=== PATIENT | male | born 1950 | race American Indian/Alaskan Native ===

== ENCOUNTER → 2019-07-22 | Outpatient (CLI) | payer MEDICARE | END | disposition home or self-care (01) | LOC: SLR 11:00 | PROVIDERS: ATTEND Internal Medicine | DX: G47.33 Obstructive sleep apnea (adult) (pediatric) (principal); R40.0 Somnolence; R06.83 Snoring; E78.00 Pure hypercholesterolemia, unspecified | CPT/HCPCS: G0399 ==

== ENCOUNTER 2020-09-03 20:17 | Observation (INO) | payer MEDICARE ==
--- NOTE | 2020-09-03 20:57 | Emergency Department Report ---
ED GI Bleed HPI - General Chief complaint: GI Bleed Stated complaint: RECTAL BLEEDING Time Seen by Provider: 09/03/20 20:44 Source: EMS Mode of arrival: Wheelchair Limitations: Physical Limitation - History of Present Illness Initial comments: Patient is a 70-year-old male that presents emergency room with complaints of bright red blood per rectum. Patient states it started approximately a week and a half ago. Patient is currently alert and oriented x2. Patient is oriented to person and place. Patient is disoriented to time. Patient answers most questions appropriately. Patient denies abdominal pain. Patient denies melena. Denies fever and chills. Patient denies chest pain or shortness of breath. Patient denies recent travel. Patient denies recent international travel. Patient denies exposure to the novel coronavirus. Patient denies sick contacts. Patient denies fever and chills. Patient denies cough. Patient denies loss of smell.. Patient denies coming in contact with anybody with symptoms of the novel coronavirus. Patient has fdc paperwork that accompanied him. Patient's paperwork has been reviewed. Per the patient's paperwork the patient was complaining of stomach discomfort. Patient has a past medical history of depression, seizure disorder, vitamin D deficiency, anxiety disorder, migraines, dry eye syndrome, BPH, insomnia, hyperlipidemia, hypertension, agitation, hypokalemia, REM sleep disorder, dementia, glaucoma, past infection of COVID-19, CVA, type 2 diabetes, dementia with behavioral disturbances. Patient is a full code. Patient came from [facility];. complaint: gross hematochezia -: Sudden Severity scale (0 -10): 0 Quality: painless Improves with: none Worsens with: none Associated Symptoms: denies other symptoms - Related Data Home Medications Medication Instructions Recorded Confirmed Last Taken Aspirin EC [Ecotrin] 325 mg PO DAILY 09/17/14 10/23/14 09/17/14 Insulin NPH Hum/Reg Insulin Hm 18 units SQ BID 09/17/14 10/23/14 09/17/14 [HumuLIN 70-30 Vial] Rosuvastatin (Nf) [Crestor] 20 mg PO QHS 09/17/14 10/23/14 09/16/14 amLODIPine 10 mg PO DAILY 09/17/14 10/23/14 09/17/14 hydroCHLOROthiazide [HCTZ] 25 mg PO QDAY 09/17/14 10/23/14 09/17/14 lisinopriL [Zestril TAB] 40 mg PO QDAY 09/17/14 10/23/14 09/17/14 Previous Rx's Medication Instructions Recorded Last Taken Type levETIRAcetam [Keppra] 500 mg PO BID #60 tablet 10/23/14 Unknown Rx Allergies Allergy/AdvReac Type Severity Reaction Status Date / Time No Known Allergies Allergy Verified 09/03/20 20:43 ED Review of Systems ROS: Stated complaint: RECTAL BLEEDING Other details as noted in HPI Constitutional: denies: chills, fever Eyes: denies: eye pain, eye discharge, vision change ENT: denies: ear pain, throat pain Respiratory: denies: cough, shortness of breath, wheezing Cardiovascular: denies: chest pain, palpitations Endocrine: no symptoms reported Gastrointestinal: hematochezia. denies: abdominal pain, nausea, diarrhea Genitourinary: denies: urgency, dysuria Musculoskeletal: denies: back pain, joint swelling, arthralgia Skin: denies: rash, lesions Neurological: denies: headache, weakness, paresthesias Psychiatric: denies: anxiety, depression Hematological/Lymphatic: denies: easy bleeding, easy bruising ED Past Medical Hx - Past Medical History Previous Medical History?: Yes Hx Hypertension: Yes Hx CVA: Yes Hx Diabetes: Yes Hx Psychiatric Treatment: Yes (Depression, Anxiety, Dementia) Additional medical history: TIA, Convulsions, BPH, REM sleep disorder, Glaucoma, - Surgical History Past Surgical History?: No - Family History Family history: no significant - Social History Smoking Status: Never Smoker Substance Use Type: None - Medications Home Medications: Home Medications Medication Instructions Recorded Confirmed Last Taken Type Aspirin EC [Ecotrin] 325 mg PO DAILY 09/17/14 10/23/14 09/17/14 History Insulin NPH Hum/Reg Insulin Hm 18 units SQ BID 09/17/14 10/23/14 09/17/14 History [HumuLIN 70-30 Vial] Rosuvastatin (Nf) [Crestor] 20 mg PO QHS 09/17/14 10/23/14 09/16/14 History amLODIPine 10 mg PO DAILY 09/17/14 10/23/14 09/17/14 History hydroCHLOROthiazide [HCTZ] 25 mg PO QDAY 09/17/14 10/23/14 09/17/14 History lisinopriL [Zestril TAB] 40 mg PO QDAY 09/17/14 10/23/14 09/17/14 History levETIRAcetam [Keppra] 500 mg PO BID #60 tablet 10/23/14 Unknown Rx ED Physical Exam - General Limitations: Altered Mental Status, Physical Limitation General appearance: alert, in no apparent distress - Head Head exam: Present: atraumatic, normocephalic - Eye Eye exam: Present: normal appearance - ENT ENT exam: Present: mucous membranes moist - Neck Neck exam: Present: normal inspection - Respiratory Respiratory exam: Present: normal lung sounds bilaterally. Absent: respiratory distress - Cardiovascular Cardiovascular Exam: Present: regular rate, normal rhythm. Absent: systolic murmur, diastolic murmur, rubs, gallop - GI/Abdominal GI/Abdominal exam: Present: soft, normal bowel sounds - Rectal Rectal exam: Present: heme (+) stool, bloody stool, other (Large amount blood noted inside the patient's diaper.). Absent: tenderness - Extremities Exam Extremities exam: Present: normal inspection - Back Exam Back exam: Present: normal inspection - Neurological Exam Neurological exam: Present: alert, altered - Psychiatric Psychiatric exam: Present: normal affect, normal mood - Skin Skin exam: Present: warm, dry, intact, normal color. Absent: rash ED Course Vital Signs 09/03/20 09/03/20 09/03/20 20:33 20:45 21:01 Pulse Rate 116 H 98 H 84 Respiratory 21 17 Rate Blood Pressure 154/79 154/76 O2 Sat by Pulse 99 100 Oximetry 09/03/20 09/03/20 09/03/20 21:15 21:31 21:45 Pulse Rate 79 72 83 Respiratory 13 16 22 Rate Blood Pressure 151/72 137/71 131/80 O2 Sat by Pulse 98 99 99 Oximetry 09/03/20 09/03/20 09/03/20 22:01 22:15 22:31 Pulse Rate 71 69 73 Respiratory 11 L 19 18 Rate Blood Pressure 125/71 119/71 114/78 O2 Sat by Pulse 99 100 Oximetry 09/03/20 09/03/20 09/03/20 22:45 23:01 23:15 Pulse Rate 68 70 72 Respiratory 32 H 13 13 Rate Blood Pressure 114/78 132/78 140/81 O2 Sat by Pulse 99 98 Oximetry 09/03/20 09/03/20 09/03/20 23:30 23:45 23:53 Pulse Rate 74 74 74 Respiratory 18 16 14 Rate Blood Pressure 136/71 129/74 129/74 O2 Sat by Pulse 98 98 99 Oximetry 09/04/20 01:31 Pulse Rate 79 Respiratory 19 Rate Blood Pressure 137/83 O2 Sat by Pulse 98 Oximetry - Reevaluation(s) Reevaluation #1: I discussed all results with patient. I discussed plan of care with patient. Patient agrees with plan of care and admission. Patient to be admitted to the hospitalist service. 09/03/20 23:11 - Consultations Consultation #1: GI paged 09/03/20 23:05 I discussed case with AMADOR Coker. Dr. Branham agrees with admission and states he will see the patient in the morning. 09/03/2023:25 Consultation #2: Hospitalist consulted for admission. Hospitalist to admit patient. 09/03/20 23:13 ED Medical Decision Making - Lab Data Result diagrams: 09/03/20 20:50 09/03/20 20:50 - Medical Decision Making Patient is a 70-year-old male who presents emergency room with complaints of bright red blood per rectum. Patient states is been going on for 1-1/2 weeks. Patient states there is a large amount of blood. During initial examination, a guaiac was done it was positive. Copious amounts of blood noted inside of the patient's diaper. No hemorrhoid was noted on initial exam. Patient's labs were essentially unremarkable except for hyperglycemia. Patient admitted to the hospital service for further evaluation and treatment. GI consulted. - Differential Diagnosis Anemia, GI bleed, bright red blood per rectum. Critical Care Time: Yes Critical care time in (mins) excluding proc time.: 35 Critical care attestation.: If time is entered above; I have spent that time in minutes in the direct care of this critically ill patient, excluding procedure time. Critical Care Time: 35 minutes ED Disposition Clinical Impression: Bright red blood per rectum, Hyperglycemia GI bleed Qualifiers: GI bleed type/associated pathology: unspecified gastrointestinal hemorrhage type Qualified Code(s): K92.2 - Gastrointestinal hemorrhage, unspecified Altered mental status Qualifiers: Altered mental status type: unspecified Qualified Code(s): R41.82 - Altered mental status, unspecified Disposition: DC-09 OP ADMIT IP TO THIS HOSP Is pt being admited?: Yes Does the pt Need Aspirin: No Condition: Critical Time of Disposition: 23:13
[2020-09-03 21:30] LABS: Basophils % (Auto) 0.6 % (0.0-1.8); Eosinophils % (Auto) 0.5 % (0.0-4.3); Hematocrit 40.4 % (35.5-45.6); Hemoglobin 13.4 gm/dl (11.8-15.2); Lymphocytes # (Auto) 1.6 K/mm3 (1.2-5.4); Lymphocytes % (Auto) 21.8 % (13.4-35.0); Mean Corpuscular HGB Conc 33 % (32-34); Mean Corpuscular Volume 90 fl (84-94); Monocytes # (Auto) 0.7 K/mm3 (0.0-0.8); Monocytes % (Auto) 9.3 % (0.0-7.3); Platelet Count 175 K/mm3 (140-440); Red Blood Count 4.48 M/mm3 (3.65-5.03); Red Cell Distribution Width 13.6 % (13.2-15.2)
[2020-09-03 21:41] LABS: INR 1.22 (0.87-1.13)
[2020-09-03 21:42] LABS: Partial Thromboplastin Time 29.5 Sec. (24.2-36.6)
[2020-09-03 22:01] LABS: BUN/Creatinine Ratio 12; Blood Urea Nitrogen 11 mg/dL (9-20); Calcium 9.2 mg/dL (8.4-10.2); Hemolysis Index 43
[2020-09-04] MEDS ORDERED: ONDANSETRON 4 MG/2 ML INJ IV PRN (00:26)
[2020-09-04] MEDS ORDERED: ACETAMINOPHEN 325 MG TAB PO PRN (00:26)
[2020-09-04] MEDS ORDERED: MORPHINE 2 MG/1 ML INJ IV PRN (00:26)
[2020-09-04] MEDS ORDERED: SODIUM CHLORIDE 0.9% 1000 ML 1,000 ML IV SCH (00:30)
--- NOTE | 2020-09-04 00:36 | History and Physical Report ---
History of Present Illness Date of examination: 09/03/20 Date of admission: 09/03/20 23:30 Chief complaint: Bright red blood per rectum History of present illness: Patient is a 70-year-old male resident of a long term with known history of dementia, hypertension, diabetes mellitus, history of CVA and glaucoma presented to the emergency room today with complaint of bright red blood per rectum which has been ongoing for about a week and a half. He denies any abdominal pain, no fever or chills, no chest pain or shortness of breath, no nausea vomiting and no diarrhea. He however has complained of some abdominal discomfort especially in the epigastric region . Work-up in the emergency room today reveals an hemoglobin of 13.4 Patient is being admitted for GI bleed. Past History Past Medical History: diabetes, hypertension, hyperlipidemia, stroke, other (Dementia,Anxiety,TIA,BPH,Glaucoma) Past Surgical History: No surgical history Social history: other (Resides in a Longterm- [facility]) Family history: no significant family history Medications and Allergies Allergies Allergy/AdvReac Type Severity Reaction Status Date / Time No Known Allergies Allergy Verified 09/03/20 20:43 Home Medications Medication Instructions Recorded Confirmed Last Taken Type Aspirin EC [Ecotrin] 325 mg PO DAILY 09/17/14 10/23/14 09/17/14 History Insulin NPH Hum/Reg Insulin Hm 18 units SQ BID 09/17/14 10/23/14 09/17/14 History [HumuLIN 70-30 Vial] Rosuvastatin (Nf) [Crestor] 20 mg PO QHS 09/17/14 10/23/14 09/16/14 History amLODIPine 10 mg PO DAILY 09/17/14 10/23/14 09/17/14 History hydroCHLOROthiazide [HCTZ] 25 mg PO QDAY 09/17/14 10/23/14 09/17/14 History lisinopriL [Zestril TAB] 40 mg PO QDAY 09/17/14 10/23/14 09/17/14 History levETIRAcetam [Keppra] 500 mg PO BID #60 tablet 10/23/14 Unknown Rx Active Meds: Active Medications Acetaminophen (Tylenol) 650 mg PO Q4H PRN PRN Reason: Pain MILD(1-3)/Fever >100.5/PONCE Sodium Chloride (Nacl 0.9% 1000 Ml) 1,000 mls @ 125 mls/hr IV DIRECT ANTON Morphine Sulfate (Morphine) 2 mg IV Q4H PRN PRN Reason: Pain, Moderate (4-6) Ondansetron HCl (Zofran) 4 mg IV Q8H PRN PRN Reason: Nausea And Vomiting Sodium Chloride (Sodium Chloride Flush Syringe 10 Ml) 10 ml IV BID ANTON Sodium Chloride (Sodium Chloride Flush Syringe 10 Ml) 10 ml IV PRN PRN PRN Reason: LINE FLUSH Review of Systems Constitutional: no fever, no chills Ears, nose, mouth and throat: no nasal congestion, no sore throat Cardiovascular: no chest pain, no palpitations Respiratory: no cough, no shortness of breath Gastrointestinal: abdominal pain, BRBPR, no nausea, no vomiting, no diarrhea, no coffee ground emesis Genitourinary Male: no dysuria, no hematuria, no flank pain Musculoskeletal: no neck pain, no low back pain Integumentary: no rash, no pruritis Neurological: no headaches, no confusion Psychiatric: no anxiety, no depression Exam - Constitutional Vitals: Temp Pulse Resp BP Pulse Ox 74 16 129/74 98 09/03/20 23:45 09/03/20 23:45 09/03/20 23:45 09/03/20 23:45 General appearance: Present: no acute distress, well-nourished - EENT Eyes: Present: PERRL, EOM intact. Absent: scleral icterus ENT: hearing intact, clear oral mucosa, dentition normal - Neck Neck: Present: supple, normal ROM - Respiratory Respiratory effort: normal Respiratory: bilateral: CTA - Cardiovascular Rhythm: regular Heart Sounds: Present: S1 & S2. Absent: gallop, systolic murmur, diastolic murmur, rub - Extremities Extremities: no ischemia, pulses intact, pulses symmetrical, No edema, Full ROM Peripheral Pulses: within normal limits - Abdominal General gastrointestinal: Present: soft, non-tender, non-distended, normal bowel sounds. Absent: mass - Integumentary Integumentary: Present: clear, warm, dry. Absent: rash - Musculoskeletal Musculoskeletal: strength equal bilaterally - Psychiatric Psychiatric: appropriate mood/affect, intact judgment & insight, cooperative, other (AOX2) - Neurologic Neurologic: CNII-XII intact, no focal deficits, moves all extremities Results - Labs CBC & Chem 7: 09/03/20 20:50 09/03/20 20:50 Labs: Abnormal lab results 09/03/20 09/03/20 09/03/20 Range/Units 20:50 20:50 21:13 Park % (Auto) 9.3 H (0.0-7.3) % PT 15.6 H (12.2-14.9) Sec. INR 1.22 H (0.87-1.13) Glucose 155 H (75-100) mg/dL Assessment and Plan - Patient Problems (1) GI bleed Current Visit: Yes Status: Acute Qualifiers: GI bleed type/associated pathology: unspecified gastrointestinal hemorrhage type Qualified Code(s): K92.2 - Gastrointestinal hemorrhage, unspecified Plan to address problem: Etiology is unknown. We will monitor CBC. [employer] has been consulted for evaluation. (2) Diabetes mellitus, type 2 Current Visit: No Status: Chronic Plan to address problem: We will monitor Accu-Cheks. (3) HTN (hypertension) Current Visit: No Status: Chronic Plan to address problem: We will monitor vital signs closely. (4) Hyperlipidemia Current Visit: No Status: Chronic Plan to address problem: We will continue routine home medications and monitor lipid profile. (5) DVT prophylaxis Current Visit: No Status: Acute Plan to address problem: Patient placed on sequential compression device. (6) Full code status Current Visit: Yes Status: Acute
--- NOTE | 2020-09-04 08:04 | Event Note ---
Date: 09/04/20 Patient is a 70-year-old male that presents emergency room with complaints of bright red blood per rectum. Patient states it started approximately a week and a half ago. Patient is currently alert and oriented x2. Patient is oriented to person and place. Patient is disoriented to time. Patient answers most questions appropriately. Patient denies abdominal pain. Patient denies melena. Denies fever and chills. Patient denies chest pain or shortness of breath. Patient denies recent travel. Patient denies recent international travel. Patient denies exposure to the novel coronavirus. Patient denies sick contacts. Patient denies fever and chills. Patient denies cough. Patient denies loss of smell.. Patient denies coming in contact with anybody with symptoms of the novel coronavirus. Patient has long term paperwork that accompanied him. Patient's paperwork has been reviewed. Per the patient's paperwork the patient was complaining of stomach discomfort. Patient has a past medical history of depression, seizure disorder, vitamin D deficiency, anxiety disorder, migraines, dry eye syndrome, BPH, insomnia, hyperlipidemia, hypertension, agitation, hypokalemia, REM sleep disorder, dementia, glaucoma, past infection of COVID-19, CVA, type 2 diabetes, dementia with behavioral disturbances. Patient is a full code. Patient came from [facility];. Patient is scheduled to have colonoscopy in a.m.
--- NOTE | 2020-09-04 09:06 | Gastroenterology Consultation ---
History of Present Illness - Reason for Consult Consult date: 09/04/20 Rectal Bleeding - History of Present Illness History obtained from patient and chart. I also tried calling the patient's n iece and next of kin (Per detention records), Jocelyn Foreman, at [phone], however no one picked up the phone This is a pleasant 70-year-old gentleman that presented for chief complaint of bright red blood per rectum duration approximately 1 week patient denies abdominal pain nausea or vomiting. Patient denies any prior history of GI bleeding. Patient thinks he has not had a colonoscopy ever in his life. Denies changes in stool or dietary habits Per the patient's paperwork the patient was complaining of stomach discomfort. Patient has a past medical history of depression, seizure disorder, vitamin D deficiency, anxiety disorder, migraines, dry eye syndrome, BPH, insomnia, hyper lipidemia, hypertension, agitation, hypokalemia, REM sleep disorder, dementia, glaucoma, past infection of COVID-19, CVA, type 2 diabetes, dementia with behavioral disturbances. Patient is a full code. Patient came from [facility] Obtained/updated/reviewed patient's current medications Past History Past Medical History: diabetes, hypertension, hyperlipidemia, stroke, other (Dementia,Anxiety,TIA,BPH,Glaucoma) Past Surgical History: No surgical history Social history: other (Resides in a [facility]- [facility]) Family history: no significant family history Medications and Allergies Allergies Allergy/AdvReac Type Severity Reaction Status Date / Time No Known Allergies Allergy Verified 09/03/20 20:43 Home Medications Medication Instructions Recorded Confirmed Last Taken Type Aspirin EC [Ecotrin] 325 mg PO DAILY 09/17/14 10/23/14 09/17/14 History Insulin NPH Hum/Reg Insulin Hm 18 units SQ BID 09/17/14 10/23/14 09/17/14 History [HumuLIN 70-30 Vial] Rosuvastatin (Nf) [Crestor] 20 mg PO QHS 09/17/14 10/23/14 09/16/14 History amLODIPine 10 mg PO DAILY 09/17/14 10/23/14 09/17/14 History hydroCHLOROthiazide [HCTZ] 25 mg PO QDAY 09/17/14 10/23/14 09/17/14 History lisinopriL [Zestril TAB] 40 mg PO QDAY 09/17/14 10/23/14 09/17/14 History levETIRAcetam [Keppra] 500 mg PO BID #60 tablet 10/23/14 Unknown Rx Active Meds: Active Medications Acetaminophen (Tylenol) 650 mg PO Q4H PRN PRN Reason: Pain MILD(1-3)/Fever >100.5/PONCE Sodium Chloride (Nacl 0.9% 1000 Ml) 1,000 mls @ 125 mls/hr IV DIRECT ANTON Morphine Sulfate (Morphine) 2 mg IV Q4H PRN PRN Reason: Pain, Moderate (4-6) Ondansetron HCl (Zofran) 4 mg IV Q8H PRN PRN Reason: Nausea And Vomiting Sodium Chloride (Sodium Chloride Flush Syringe 10 Ml) 10 ml IV BID ANTON Sodium Chloride (Sodium Chloride Flush Syringe 10 Ml) 10 ml IV PRN PRN PRN Reason: LINE FLUSH Review of Systems - Review of Systems ROS unobtainable: due to mental status Exam - Constitutional Vital Signs: Temp Pulse Resp BP Pulse Ox 97.9 F 72 18 138/73 97 09/04/20 03:09 09/04/20 03:09 09/04/20 03:09 09/04/20 03:09 09/04/20 03:09 General appearance: no acute distress - EENT Eyes: EOM intact - Neck Neck: supple - Respiratory Respiratory effort: normal - Cardiovascular Rhythm: regular - Gastrointestinal General gastrointestinal: Present: soft, non-tender - Integumentary Integumentary: Present: dry - Neurologic Neurological: oriented to person - Psychiatric Psychiatric: appropriate mood/affect - Labs CBC & Chem 7: 09/03/20 20:50 09/03/20 20:50 Lab Results: Laboratory Results - last 24 hr 09/03/20 09/03/20 09/03/20 20:50 20:50 21:13 WBC 7.3 RBC 4.48 Hgb 13.4 Hct 40.4 MCV 90 MCH 30 MCHC 33 RDW 13.6 Plt Count 175 Lymph % (Auto) 21.8 Harrison % (Auto) 9.3 H Eos % (Auto) 0.5 Baso % (Auto) 0.6 Lymph # (Auto) 1.6 Harrison # (Auto) 0.7 Eos # (Auto) 0.0 Baso # (Auto) 0.0 Seg Neutrophils % 67.8 Seg Neutrophils # 5.0 PT 15.6 H INR 1.22 H APTT 29.5 Sodium 143 Potassium 3.8 Chloride 103.2 Carbon Dioxide 25 Anion Gap 19 BUN 11 Creatinine 0.9 Estimated GFR > 60 BUN/Creatinine Ratio 12 Glucose 155 H Calcium 9.2 Assessment and Plan Given patient stable hemoglobin last in the differential diagnosis is rectal outlet bleeding such as due to hemorrhoid, fissure, etc. However, given amount of blood that was reported as well as patient living in a nursing facility and therefore likelihood of is being sent back to the emergency room for more bleeding and issues with outpatient follow-up would recommend diagnostic colonoscopy to rule out underlying lesion such as polyp mass AVM etc. Therefore, I will continue to try to contact the patient's family to obtain consent for colonoscopy which can be considered for tomorrow. In the meantime we will put patient on clear liquid diet - Patient Problems (1) Bright red blood per rectum Current Visit: Yes Status: Acute (2) GI bleed Current Visit: Yes Status: Acute Qualifiers: GI bleed type/associated pathology: unspecified gastrointestinal hemorrhage type Qualified Code(s): K92.2 - Gastrointestinal hemorrhage, unspecified
--- NOTE | 2020-09-04 16:07 | Event Note ---
Date: 09/04/20 successfully contacted UMBERTO Patton at [phone] and got verbal consent to proceed with colon tomorrow
[2020-09-04] MEDS ORDERED: POLYETHYLENE GLYCOL/ELECT SOLN 4000 ML PO SCH (16:54)
[2020-09-05] MEDS ORDERED: WATER FOR IRRIG STERILE 1,000 ML BOTTLE ONE (08:46)
[2020-09-05] MEDS ORDERED: SODIUM CHLORIDE 0.9% 1000 ML 1,000 ML ONE (08:46)
[2020-09-05] MEDS ORDERED: WATER FOR IRRIG STERILE 250 ML BOTTLE IR ONE (08:46)
[2020-09-05] MEDS ORDERED: SODIUM CHLORIDE 0.9% 1000 ML 1,000 ML IV SCH (09:00)
--- NOTE | 2020-09-05 09:13 | Anesthesia Consultation ---
Anesthesia Consult and Med Hx Date of service: 09/05/20 - Airway Anesthetic Teeth Evaluation: Poor ROM Head & Neck: Adequate Mental/Hyoid Distance: Adequate Mallampati Class: Class II Intubation Access Assessment: Probably Good - Pulmonary Exam CTA: Yes - Pre-Operative Health Status ASA Pre-Surgery Classification: ASA3, Emergency Proposed Anesthetic Plan: MAC - Pulmonary Hx Smoking: No Hx Asthma: No COPD: No Home Oxygen Therapy: No Hx Pneumonia: Yes (As a child) Hx Sleep Apnea: No - Cardiovascular System Hx Hypertension: Yes Hx Angina: Yes (chest pain) Hx Cardia Arrhythmia: Yes (Bradycardia) Hx Pacemaker: No Hx Internal Defibrillator: No - Central Nervous System Hx Neuromuscular Disorder: Yes (Syncopy) CVA: Yes Hx Psychiatric Problems: Yes (Altered mental status, Dementia) - Gastrointestinal Hx Ulcer: Yes ( GI Bleeding) - Endocrine Hx Renal Disease: No Hx Cirrhosis: No Hx Liver Disease: No Hx Non-Insulin Dependent Diabetes: Yes Hx Thyroid Disease: No - Hematic Hx Anemia: No - Other Systems Hx Alcohol Use: Yes (beers socially. None in 2 months) Hx Cancer: No Hx Obesity: No - Additional Comments Anesthesia Medical History Comments: Denied previous anesthesia complication
--- NOTE | 2020-09-05 09:15 | Anesthesia Day of Surgery ---
Anesthesia Day of Surgery - Day of Surgery Patient Examined: Yes Patient H&P Reviewed: Yes Patient is NPO: Yes Beta Blockers: No Cardiac Clearance: No Pulmonary Clearance: No
[2020-09-05] MEDS ORDERED: LIDOCAINE MPF (2%) 20 MG/1 ML VIAL 5 ML ONE (09:17)
[2020-09-05] MEDS ORDERED: propofoL 200 MG/20 ML VIAL IV ONE ×2 (09:18→09:25)
--- NOTE | 2020-09-05 10:01 | Post Operative Note ---
Pre-op diagnosis: gi bleed Post-op diagnosis: same Findings: Colon: few medium sigmoid divertiuclosis - medium/large internal hemorrhoids without bleeding stigmata - negative other Procedure: Colonoscopy Anesthesia: MAC Surgeon: MISA DYER Estimated blood loss: none Pathology: list Specimen disposition: to lab Condition: stable Disposition: floor
--- NOTE | 2020-09-05 10:27 | Operative Report ---
COLONOSCOPY PROCEDURE NOTE INDICATION: Rectal bleeding. MEDICATIONS: Propofol per LONG DISTANCE OPERATOR. COMPLICATIONS: None. DESCRIPTION OF PROCEDURE: The patient was brought to procedure suite. The patient had the procedure discussed with him at length. All risks, complications and benefits discussed after which the patient signed for the procedure to be performed. The patient was placed in left lateral decubitus position. Rectal exam performed prior to insertion of the scope. After adequate sedation medication as above, scope was introduced into the rectum and brought to level of cecum. Ileocecal valve, appendiceal orifice, cecal strap were adequately visualized. Colonoscope was then removed and mucosa of colon visualized. Prep quality for the procedure was fair. The patient's vital signs remained stable throughout the procedure. FINDINGS: There were no mass lesions or polyps noted during this procedure. There were few small to medium sigmoid diverticula noted with no stigmata of bleeding. Retroflexion view performed in the rectum showed medium to large internal hemorrhoids. This may have been a source of bleeding. The patient tolerated the procedure well. No complications during the procedure. IMPRESSION: 1. Diverticulosis. 2. Internal hemorrhoids as noted above. 3. Otherwise, normal colonoscopy with no stigmata of bleeding noted during the procedure. RECOMMENDATIONS: 1. High-fiber diet. 2. Continue current medications. 3. If H and H stable, okay to discharge from GI standpoint later today. JOB# [id number] CAB/NTS
--- NOTE | 2020-09-05 11:26 | Post Anesthesia Evaluation ---
- Post Anesthesia Evaluation Patient Participated: Yes Airway Patent: Yes Stable Respiratory Function: Yes Nausea/Vomiting: No Temp > 96.8F: Yes Pain Manageable: Yes Adequeate Hydration: Yes Anesthesia Complications: No Block Receding Appropriately: Not Applicable Patient on Ventilator: No
--- NOTE | 2020-09-05 13:51 | Discharge Summary ---
Providers - Providers Date of Admission: 09/03/20 23:30 Date of discharge: 09/05/20 Attending physician: VERONICA LOVE 09/04/20 00:28 Consult to Physician [CONS] Routine Comment: Consulting Provider: KATIE MOTT Physician Instructions: Reason For Exam: GI bleed Primary care physician: CONSTRUCTION [employer] Hospitalization Condition: Good Pertinent studies: Colonoscopy which showed large internal hemorrhoids. Hospital course: Patient admitted for lower GI bleed. Noticed blood in the stool. Work-up here found patient not to be anemic. Patient had no rectal pain no abdominal pain was hemodynamically stable. Had colonoscopy which show etiology of bleeding to be large internal hemorrhoids. Patient be treated for these sitz bath suppositories at [facility]. Disposition: DC/[place]-03 [facility]F [facility] - Discharge Diagnoses (1) GI bleed Status: Acute Qualifiers: GI bleed type/associated pathology: unspecified gastrointestinal hemorrhage type Qualified Code(s): K92.2 - Gastrointestinal hemorrhage, unspecified Comment: Patient acute GI blood loss anemia secondary to internal hemorrhoids. H&H has remained stable patient has never been anemic. Can follow-up CBC. Treat hemorrhoids in the [facility] setting. Core Measure Documentation - Palliative Care Palliative Care/ Comfort Measures: Not Applicable - Core Measures Any of the following diagnoses?: none Exam - Constitutional Vitals: Temp Pulse Resp BP Pulse Ox 97.6 F 63 20 156/74 97 09/05/20 06:25 09/05/20 06:25 09/05/20 06:25 09/05/20 06:25 09/05/20 06:25 General appearance: Present: no acute distress, well-nourished - EENT Eyes: Present: PERRL ENT: hearing intact, clear oral mucosa - Neck Neck: Present: supple, normal ROM - Respiratory Respiratory effort: normal Respiratory: bilateral: CTA - Cardiovascular Heart Sounds: Present: S1 & S2. Absent: rub, click - Extremities Extremities: pulses symmetrical, No edema Peripheral Pulses: within normal limits - Abdominal General gastrointestinal: Present: soft, non-tender, non-distended, normal bowel sounds Male genitourinary: Present: normal - Integumentary Integumentary: Present: clear, warm, dry - Musculoskeletal Musculoskeletal: gait normal, strength equal bilaterally - Psychiatric Psychiatric: appropriate mood/affect, intact judgment & insight - Neurologic Neurologic: CNII-XII intact, moves all extremities Plan Activity: no restrictions Diet: low fat, other (High-fiber diet will relate this message to [facility] facility.) Follow up with: PRIMARY CARE, [Primary Care Provider] - 3-5 Days Prescriptions: Hydrocortisone [Proctosol-Hc 2.5% TOP CREAM] 10 applic RC BID #14 cream.appl
[2020-09-05 17:46] LABS: Basophils % (Auto) 0.4 % (0.0-1.8); Eosinophils % (Auto) 0.6 % (0.0-4.3); Hematocrit 41.7 % (35.5-45.6); Hemoglobin 13.8 gm/dl (11.8-15.2); Lymphocytes # (Auto) 1.7 K/mm3 (1.2-5.4); Lymphocytes % (Auto) 22.6 % (13.4-35.0); Mean Corpuscular HGB Conc 33 % (32-34); Mean Corpuscular Volume 89 fl (84-94); Monocytes # (Auto) 0.9 K/mm3 (0.0-0.8); Monocytes % (Auto) 12.2 % (0.0-7.3); Platelet Count 165 K/mm3 (140-440); Red Blood Count 4.67 M/mm3 (3.65-5.03); Red Cell Distribution Width 13.4 % (13.2-15.2)
[2020-09-05 17:59] LABS: Blood Urea Nitrogen 7 mg/dL (9-20); Calcium 9.1 mg/dL (8.4-10.2); Hemolysis Index 64
[2020-09-05 18:01] LABS: BUN/Creatinine Ratio 10
[2020-09-05 18:04] LABS: INR 1.21 (0.87-1.13)
--- NOTE | 2020-09-06 13:03 | Gastroenterology Progress Note ---
Assessment and Plan 1.GI: rectal bleeding most likely due to hemorrhoids, also noted diverticulosis on colonoscopy - no GI issues overnight - h/h stable - ok to dc from GI standpoint Subjective Date of service: 09/06/20 Interval history: - no GI complaints overnight Objective - Constitutional Vitals: Temp Pulse Resp BP Pulse Ox 97.8 F 66 20 153/74 96 09/06/20 11:14 09/06/20 11:14 09/06/20 11:14 09/06/20 11:14 09/06/20 11:14 General appearance: no acute distress - EENT Eyes: PERRL - Respiratory Respiratory: bilateral: CTA - Cardiovascular Rhythm: regular Heart Sounds: Present: S1 & S2 - Gastrointestinal General gastrointestinal: Present: soft, non-tender, non-distended - Labs CBC & Chem 7: 09/05/20 16:57 09/05/20 16:57 Labs: Laboratory Results - last 24 hr 09/05/20 09/05/20 09/05/20 16:57 16:57 16:57 WBC 7.4 RBC 4.67 Hgb 13.8 Hct 41.7 MCV 89 MCH 30 MCHC 33 RDW 13.4 Plt Count 165 Lymph % (Auto) 22.6 [place] % (Auto) 12.2 H Eos % (Auto) 0.6 Baso % (Auto) 0.4 Lymph # (Auto) 1.7 [place] # (Auto) 0.9 H Eos # (Auto) 0.0 Baso # (Auto) 0.0 Seg Neutrophils % 64.2 Seg Neutrophils # 4.8 PT 15.5 H INR 1.21 H Sodium 142 Potassium 3.6 Chloride 105.1 Carbon Dioxide 26 Anion Gap 15 BUN 7 L Creatinine 0.7 L Estimated GFR > 60 BUN/Creatinine Ratio 10 Glucose 107 H POC Glucose Calcium 9.1 09/05/20 09/06/20 09/06/20 21:00 07:55 11:53 WBC RBC Hgb Hct MCV MCH MCHC RDW Plt Count Lymph % (Auto) [place] % (Auto) Eos % (Auto) Baso % (Auto) Lymph # (Auto) [place] # (Auto) Eos # (Auto) Baso # (Auto) Seg Neutrophils % Seg Neutrophils # PT INR Sodium Potassium Chloride Carbon Dioxide Anion Gap BUN Creatinine Estimated GFR BUN/Creatinine Ratio Glucose POC Glucose 72 83 108 H Calcium
--- NOTE | 2020-09-06 14:50 | Event Note ---
Date: 09/06/20 Mr. Foreman did not go home yesterday secondary to no Covid test and patient is going back to [facility]way facility. Test has been obtained negative patient stable to return using same discharge.
--- NOTE | 2020-09-07 12:21 | Gastroenterology Progress Note ---
Assessment and Plan 1. GI: stable overnight w/o signs bleeding - follow h/h - diet as tolerated - ok to d/c, will sign off Subjective Date of service: 09/07/20 Interval history: - no GI issues overnight Objective - Constitutional Vitals: Temp Pulse Resp BP Pulse Ox 97.9 F 66 19 171/87 100 09/07/20 12:12 09/07/20 12:12 09/07/20 12:12 09/07/20 12:12 09/07/20 12:12 General appearance: no acute distress - EENT Eyes: PERRL - Respiratory Respiratory: bilateral: CTA - Cardiovascular Rhythm: regular Heart Sounds: Present: S1 & S2 - Gastrointestinal General gastrointestinal: Present: soft, non-tender, non-distended - Labs CBC & Chem 7: 09/05/20 16:57 09/05/20 16:57 Labs: Laboratory Results - last 24 hr 09/06/20 09/06/20 09/06/20 09:22 16:36 21:24 POC Glucose 119 H 110 H Coronavirus (PCR) Negative 09/07/20 08:46 POC Glucose 82 Coronavirus (PCR)
[2020-09-07] MEDS ORDERED: LISINOPRIL 40 MG TAB PO SCH (13:00)
[2020-09-07] MEDS ORDERED: amLODIPine 10 MG TAB PO SCH (13:00)
--- NOTE | 2020-09-07 14:22 | Discharge Summary ---
Providers - Providers Date of Admission: 09/03/20 23:30 Date of discharge: 09/07/20 Attending physician: VERONICA LOVE 09/04/20 00:28 Consult to Physician [CONS] Routine Comment: Consulting Provider: KATIE MOTT Physician Instructions: Reason For Exam: GI bleed Primary care physician: CLINIC MD ASSOCIATE Hospitalization Condition: Good Hospital course: Patient presented with rectal bleeding. Patient had colonoscopy done which showed large internal hemorrhoids no further bleeding. Patient is transfused hemoglobin hematocrit stabilized times another 2448 hrs. No abdominal pain no further bleeding patient stable for discharge back to alf. Hospital course complicated by necessity of Covid test. Covid found to be negative. Disposition: DC/[facility]-03 SNF [facility] - Discharge Diagnoses (1) GI bleed Status: Acute Qualifiers: GI bleed type/associated pathology: unspecified gastrointestinal hemorrhage type Qualified Code(s): K92.2 - Gastrointestinal hemorrhage, unspecified Comment: Patient acute GI blood loss anemia secondary to internal hemorrhoids. H&H has remained stable patient has never been anemic. Can follow-up CBC. Treat hemorrhoids in the [facility] facility setting. Core Measure Documentation - Palliative Care Palliative Care/ Comfort Measures: Not Applicable - Core Measures Any of the following diagnoses?: none Exam - Constitutional Vitals: Temp Pulse Resp BP Pulse Ox 97.9 F 66 19 171/87 100 09/07/20 12:12 09/07/20 12:21 09/07/20 12:12 09/07/20 12:21 09/07/20 12:12 General appearance: Present: no acute distress, well-nourished - EENT Eyes: Present: PERRL ENT: hearing intact, clear oral mucosa - Neck Neck: Present: supple, normal ROM - Respiratory Respiratory effort: normal Respiratory: bilateral: CTA - Cardiovascular Heart Sounds: Present: S1 & S2. Absent: rub, click - Extremities Extremities: pulses symmetrical, No edema Peripheral Pulses: within normal limits - Abdominal General gastrointestinal: Present: soft, non-tender, non-distended, normal bowel sounds Male genitourinary: Present: normal - Integumentary Integumentary: Present: clear, warm, dry - Musculoskeletal Musculoskeletal: gait normal, strength equal bilaterally - Psychiatric Psychiatric: appropriate mood/affect, intact judgment & insight - Neurologic Neurologic: CNII-XII intact, moves all extremities Plan Activity: no restrictions Diet: other (Stool softeners no straining with bowel movement.) Assessment: Follow-up discharge today 09/07/2020 Follow up with: PRIMARY CARE,MD [Primary Care Provider] - 3-5 Days Prescriptions: Hydrocortisone [Proctosol-Hc 2.5% TOP CREAM] 10 applic RC BID #14 cream.appl
[2020-09-07 19:54] VITALS: BP 138/78
== END 2020-09-07 18:00 ==
LOC: ED 20:17 → 3A 23:30
PROVIDERS: ADMIT Internal Medicine Geriatric Medicine; ATTEND Internal Medicine
DX: K92.2 Gastrointestinal hemorrhage, unspecified (principal); Z20.828 Contact with and (suspected) exposure to other viral communicable diseases; I10 Essential (primary) hypertension; E11.65 Type 2 diabetes mellitus with hyperglycemia; E78.5 Hyperlipidemia, unspecified; F02.80 Dementia in other diseases classified elsewhere, unspecified severity, without behavioral disturbance, psychotic disturbance, mood disturbance, and anxiety; F41.9 Anxiety disorder, unspecified; N40.0 Benign prostatic hyperplasia without lower urinary tract symptoms; H40.9 Unspecified glaucoma; Z86.73 Personal history of transient ischemic attack (TIA), and cerebral infarction without residual deficits; Z79.4 Long term (current) use of insulin; Z79.82 Long term (current) use of aspirin
CPT/HCPCS: 36415; 45378; 80048; 82962; 85025; 85610; 85730; 96361; 96374; 96375; 99291; G0378; J2270; J2704; J7030; U0003

== ENCOUNTER 2021-09-03 18:43 | Emergency (ER) | payer MEDICARE ==
[2021-09-03] MEDS ORDERED: SODIUM CHLORIDE 0.9% 1000 ML 1,000 ML IV ONE (19:46)
--- NOTE | 2021-09-03 19:52 | Emergency Department Report ---
ED General Adult HPI - General Chief complaint: Altered Mental Status Stated complaint: AMS Time Seen by Provider: 09/03/21 19:35 Source: patient Mode of arrival: Stretcher Limitations: Altered Mental Status - History of Present Illness Initial comments: 71-year-old male with a past medical history of type 2 diabetes, dementia, seizures, and GI bleed secondary hemorrhoids presents to the hospital from the [facility] for decreased p.o. intake for the last 3 days. Patient states he has been eating just a little. He is oriented to person, place, but not to year. He denies pain. He does not provide a reason as to why he has decreased p.o. intake but states he eats "a little" as per nursing how she is at patient's baseline he is alert, confused, verbal, ambulates with a walker. Severity scale (0 -10): 0 - Related Data Home Medications Medication Instructions Recorded Confirmed Last Taken Aspirin EC [Ecotrin] 325 mg PO DAILY 09/17/14 10/23/14 09/17/14 Insulin NPH Hum/Reg Insulin Hm 18 units SQ BID 09/17/14 10/23/14 09/17/14 [HumuLIN 70-30 Vial] Rosuvastatin (Nf) [Crestor] 20 mg PO QHS 09/17/14 10/23/14 09/16/14 amLODIPine 10 mg PO DAILY 09/17/14 10/23/14 09/17/14 hydroCHLOROthiazide [HCTZ] 25 mg PO QDAY 09/17/14 10/23/14 09/17/14 lisinopriL [Zestril TAB] 40 mg PO QDAY 09/17/14 10/23/14 09/17/14 Previous Rx's Medication Instructions Recorded Last Taken Type levETIRAcetam [Keppra TAB] 500 mg PO BID #60 tablet 10/23/14 Unknown Rx Acetaminophen [Acetaminophen TAB] 650 mg PO Q4H PRN tablet 09/05/20 Unknown Rx Hydrocortisone [Proctosol-Hc 2.5% 10 applic RC BID #14 cream.appl 09/05/20 Unknown Rx TOP CREAM] Allergies Allergy/AdvReac Type Severity Reaction Status Date / Time No Known Allergies Allergy Verified 09/03/20 20:43 ED Review of Systems ROS: Stated complaint: AMS Other details as noted in HPI Comment: All other systems reviewed and negative ED Past Medical Hx - Past Medical History Hx Hypertension: Yes Hx CVA: Yes Hx Diabetes: Yes Hx Liver Disease: No Hx Renal Disease: No Hx Psychiatric Treatment: Yes (Depression, Anxiety, Dementia) Hx Asthma: No Hx COPD: No Additional medical history: TIA, Convulsions, BPH, REM sleep disorder, Glaucoma, - Surgical History Hx Pacemaker: No Hx Internal Defibrillator: No - Social History Smoking Status: Never Smoker - Medications Home Medications: Home Medications Medication Instructions Recorded Confirmed Last Taken Type Aspirin EC [Ecotrin] 325 mg PO DAILY 09/17/14 10/23/14 09/17/14 History Insulin NPH Hum/Reg Insulin Hm 18 units SQ BID 09/17/14 10/23/14 09/17/14 History [HumuLIN 70-30 Vial] Rosuvastatin (Nf) [Crestor] 20 mg PO QHS 09/17/14 10/23/14 09/16/14 History amLODIPine 10 mg PO DAILY 09/17/14 10/23/14 09/17/14 History hydroCHLOROthiazide [HCTZ] 25 mg PO QDAY 09/17/14 10/23/14 09/17/14 History lisinopriL [Zestril TAB] 40 mg PO QDAY 09/17/14 10/23/14 09/17/14 History levETIRAcetam [Keppra TAB] 500 mg PO BID #60 tablet 10/23/14 Unknown Rx Acetaminophen [Acetaminophen TAB] 650 mg PO Q4H PRN tablet 09/05/20 Unknown Rx Hydrocortisone [Proctosol-Hc 2.5% 10 applic RC BID #14 cream.appl 09/05/20 Unknown Rx TOP CREAM] ED Physical Exam - General Limitations: Altered Mental Status - Other Other exam information: General: No acute distress Head: Atraumatic Eyes: normal appearance ENT: Moist mucous membranes Neck: Normal appearance, no midline tenderness Chest: Clear to auscultation bilaterally CV: Regular rate and rhythm Abdomen: Soft, normal bowel sounds, nontender, nondistended, no rebound or guarding Back: Normal inspection Extremity: Normal inspection, full range of motion Neuro: Alert O x 2, no facial asymmetry, speech clear, no gross motor sensory deficit Psych: Appropriate behavior Skin: No rash ED Course Vital Signs 09/03/21 09/03/21 09/03/21 18:51 19:15 19:20 Temperature 97.9 F 98.1 F Pulse Rate 79 96 H 99 H Respiratory 18 19 13 Rate Blood Pressure 158/80 Blood Pressure 130/78 158/70 [Left] O2 Sat by Pulse 97 97 98 Oximetry 09/03/21 09/03/21 09/03/21 19:31 19:45 20:01 Temperature Pulse Rate 86 86 85 Respiratory 19 24 19 Rate Blood Pressure 126/60 126/60 138/69 Blood Pressure [Left] O2 Sat by Pulse 98 99 98 Oximetry 09/03/21 09/03/21 09/03/21 20:15 20:31 20:45 Temperature Pulse Rate 86 89 86 Respiratory 18 21 19 Rate Blood Pressure 140/69 150/60 138/61 Blood Pressure [Left] O2 Sat by Pulse 99 98 98 Oximetry 09/03/21 09/03/21 09/03/21 21:01 21:15 21:31 Temperature Pulse Rate 80 69 63 Respiratory 15 19 18 Rate Blood Pressure 149/74 151/77 136/66 Blood Pressure [Left] O2 Sat by Pulse 98 93 97 Oximetry 09/03/21 09/03/21 09/03/21 21:45 22:01 22:15 Temperature Pulse Rate 63 66 70 Respiratory 20 19 17 Rate Blood Pressure 137/59 124/59 122/65 Blood Pressure [Left] O2 Sat by Pulse 98 98 98 Oximetry 09/03/21 09/03/21 09/03/21 22:31 22:45 23:01 Temperature Pulse Rate 65 92 H 71 Respiratory 17 18 18 Rate Blood Pressure 141/70 128/67 145/64 Blood Pressure [Left] O2 Sat by Pulse 98 99 95 Oximetry 09/03/21 09/03/21 09/03/21 23:05 23:15 23:31 Temperature Pulse Rate 63 63 57 L Respiratory 14 14 13 Rate Blood Pressure 139/72 139/72 130/67 Blood Pressure [Left] O2 Sat by Pulse 99 97 97 Oximetry 09/03/21 09/04/21 09/04/21 23:45 00:01 00:15 Temperature Pulse Rate 71 79 67 Respiratory 17 21 17 Rate Blood Pressure 114/59 143/73 152/75 Blood Pressure [Left] O2 Sat by Pulse 98 98 98 Oximetry ED Medical Decision Making - Lab Data Result diagrams: 09/03/21 19:58 09/03/21 19:58 Lab Results 09/03/21 09/03/21 09/03/21 Range/Units 19:58 19:58 20:37 WBC 10.2 (4.5-11.0) K/mm3 RBC 4.68 (3.65-5.03) M/mm3 Hgb 14.0 (11.8-15.2) gm/dl Hct 43.2 (35.5-45.6) % MCV 92 (84-94) fl MCH 30 (28-32) pg MCHC 32 (32-34) % RDW 13.5 (13.2-15.2) % Plt Count 145 (140-440) K/mm3 Lymph % (Auto) 9.5 L (13.4-35.0) % [place] % (Auto) 7.0 (0.0-7.3) % Eos % (Auto) 0.0 (0.0-4.3) % Baso % (Auto) 0.1 (0.0-1.8) % Lymph # (Auto) 1.0 L (1.2-5.4) K/mm3 [place] # (Auto) 0.7 (0.0-0.8) K/mm3 Eos # (Auto) 0.0 (0.0-0.4) K/mm3 Baso # (Auto) 0.0 (0.0-0.1) K/mm3 Seg Neutrophils % 83.4 H (40.0-70.0) % Seg Neutrophils # 8.5 H (1.8-7.7) K/mm3 Sodium 146 H (137-145) mmol/L Potassium 4.2 (3.6-5.0) mmol/L Chloride 106.5 (98-107) mmol/L Carbon Dioxide 22 (22-30) mmol/L Anion Gap 22 mmol/L BUN 10 (9-20) mg/dL Creatinine 0.9 (0.8-1.3) mg/dL Estimated GFR > 60 ml/min BUN/Creatinine Ratio 11 % Glucose 70 L (75-100) mg/dL POC Glucose (70-105) mg/dL Calcium 9.4 (8.4-10.2) mg/dL Magnesium 2.20 (1.7-2.3) mg/dL Urine Color (Yellow) Urine Turbidity (Clear) Urine pH (5.0-7.0) Ur Specific [place] (1.003-1.030) Urine Protein (Negative) mg/dL Urine Glucose (UA) (Negative) mg/dL Urine Ketones (Negative) mg/dL Urine Blood (Negative) Urine Nitrite (Negative) Urine Bilirubin (Negative) Urine Urobilinogen (<2.0) mg/dL Ur Leukocyte Esterase (Negative) Urine WBC (Auto) (0.0-6.0) /HPF Urine RBC (Auto) (0.0-6.0) /HPF Urine Mucus /HPF 09/03/21 09/03/21 09/04/21 Range/Units 20:54 Unknown 00:25 WBC (4.5-11.0) K/mm3 RBC (3.65-5.03) M/mm3 Hgb (11.8-15.2) gm/dl Hct (35.5-45.6) % MCV (84-94) fl MCH (28-32) pg MCHC (32-34) % RDW (13.2-15.2) % Plt Count (140-440) K/mm3 Lymph % (Auto) (13.4-35.0) % [place] % (Auto) (0.0-7.3) % Eos % (Auto) (0.0-4.3) % Baso % (Auto) (0.0-1.8) % Lymph # (Auto) (1.2-5.4) K/mm3 [place] # (Auto) (0.0-0.8) K/mm3 Eos # (Auto) (0.0-0.4) K/mm3 Baso # (Auto) (0.0-0.1) K/mm3 Seg Neutrophils % (40.0-70.0) % Seg Neutrophils # (1.8-7.7) K/mm3 Sodium (137-145) mmol/L Potassium (3.6-5.0) mmol/L Chloride (98-107) mmol/L Carbon Dioxide (22-30) mmol/L Anion Gap mmol/L BUN (9-20) mg/dL Creatinine (0.8-1.3) mg/dL Estimated GFR ml/min BUN/Creatinine Ratio % Glucose (75-100) mg/dL POC Glucose 70 117 H (70-105) mg/dL Calcium (8.4-10.2) mg/dL Magnesium (1.7-2.3) mg/dL Urine Color [place] (Yellow) Urine Turbidity Clear (Clear) Urine pH 5.0 (5.0-7.0) Ur Specific [place] 1.023 (1.003-1.030) Urine Protein 100 mg/dl (Negative) mg/dL Urine Glucose (UA) Neg (Negative) mg/dL Urine Ketones 80 (Negative) mg/dL Urine Blood Neg (Negative) Urine Nitrite Neg (Negative) Urine Bilirubin Neg (Negative) Urine Urobilinogen 4.0 (<2.0) mg/dL Ur Leukocyte Esterase Neg (Negative) Urine WBC (Auto) 1.0 (0.0-6.0) /HPF Urine RBC (Auto) 1.0 (0.0-6.0) /HPF Urine Mucus Few /HPF - EKG Data -: EKG Interpreted by Tn EKG shows normal: sinus rhythm, intervals (QTC 438), QRS complexes (Multi form ventricular PVC), ST-T waves (No STEMI) Rate: normal (81) - EKG Data When compared to previous EKG there are: no significant change - Radiology Data Radiology results: report reviewed CHEST 1 VIEW INDICATION / CLINICAL INFORMATION: tachycardia, poor po intake, dementia STUDY TIME: 1950 COMPARISON: 10/09/2014 FINDINGS: SUPPORT DEVICES: None HEART / MEDIASTINUM: No significant abnormality. LUNGS / PLEURA: No significant acute pulmonary or pleural abnormality. No pneumothorax. ADDITIONAL FINDINGS: No significant additional findings. IMPRESSION: No significant acute abnormality - Medical Decision Making 71-year-old male presents from [facility] for not eating for 2 days. Patient's labs and urine suggestive of mild dehydration. Patient treated with 1 L normal saline and provided food to eat in the ED. He completed one half of his burger. He will be discharged back to [facility] Critical Care Time: No Critical care attestation.: If time is entered above; I have spent that time in minutes in the direct care of this critically ill patient, excluding procedure time. ED Disposition Clinical Impression: Dementia, Decreased oral intake, Mild dehydration Disposition: 01 HOME / SELF CARE / HOMELESS Is pt being admited?: No Does the pt Need Aspirin: No Condition: Stable Instructions: Dehydration, Adult, Dementia Additional Instructions: Follow-up with your primary care doctor. Return if symptoms worsen as indicated by your discharge instructions. Referrals: ROYA BARROS MD [Primary Care Provider] - 3-5 Days Time of Disposition: 00:33
--- NOTE | 2021-09-03 20:26 | XRay Report ---
CHEST 1 VIEW INDICATION / CLINICAL INFORMATION: tachycardia, poor po intake, dementia STUDY TIME: 1950 COMPARISON: 10/09/2014 FINDINGS: SUPPORT DEVICES: None HEART / MEDIASTINUM: No significant abnormality. LUNGS / PLEURA: No significant acute pulmonary or pleural abnormality. No pneumothorax. ADDITIONAL FINDINGS: No significant additional findings. IMPRESSION: No significant acute abnormality Signer Name: Carlitos Patino MD Signed: 09/03/2021 8:22 PM Workstation Name: [email or web address]
[2021-09-03 20:57] LABS: Basophils % (Auto) 0.1 % (0.0-1.8); Hematocrit 43.2 % (35.5-45.6); Lymphocytes % (Auto) 9.5 % (13.4-35.0); Mean Corpuscular HGB Conc 32 % (32-34); Mean Corpuscular Volume 92 fl (84-94); Monocytes # (Auto) 0.7 K/mm3 (0.0-0.8); Platelet Count 145 K/mm3 (140-440); Red Blood Count 4.68 M/mm3 (3.65-5.03); Red Cell Distribution Width 13.5 % (13.2-15.2)
[2021-09-03 21:06] LABS: BUN/Creatinine Ratio 11; Blood Urea Nitrogen 10 mg/dL (9-20); Calcium 9.4 mg/dL (8.4-10.2); Hemolysis Index 16
[2021-09-03 23:01] LABS: Bilirubin,Urine NEG (Negative); Blood,Urine NEG (Negative); Color,Urine Amber (Yellow); Mucus,Urine FEW /HPF
[2021-09-04 07:19] VITALS: BP 120/80
--- NOTE | 2021-09-04 12:21 | Electrocardiograph Report ---
[facility] Test Date: 2021-09-03 Test Time: 20:24:15 Pat Name: SERGIO DAS Department: Room: Gender: M Online Marketing Director: : 1950 Requested By: KERRI ROPER Order Number: [id number] Reading MD: Heather Balderas Measurements Intervals [place] Rate: 81 P: 78 [place]: 139 QRS: 5 QRSD: 95 T: -18 QT: 375 QTc: 438 Interpretive Statements Sinus rhythm Multiform ventricular premature complexes No previous ECG available for comparison Electronically Signed On 09-04-2021 12:21:06 EDT by Heather Balderas
== END 2021-09-04 07:46 | disposition home or self-care (01) ==
LOC: ED 18:43
DX: E86.0 Dehydration (principal); F03.90 Unspecified dementia, unspecified severity, without behavioral disturbance, psychotic disturbance, mood disturbance, and anxiety; R63.8 Other symptoms and signs concerning food and fluid intake; Z86.73 Personal history of transient ischemic attack (TIA), and cerebral infarction without residual deficits; E11.8 Type 2 diabetes mellitus with unspecified complications
CPT/HCPCS: 36415; 71045; 80048; 81001; 82962; 83735; 85025; 93005; 96360; 99284; J7030